=== PATIENT | female | born 1995 | race African-American/Black ===

== ENCOUNTER 2018-05-29 10:27 | Emergency (ER) | payer OTHER ==
[2018-05-29 13:05] VITALS: BP 105/61
--- NOTE | 2018-05-29 18:04 | ED ---
Throat Pain/Nasal Congestion - HPI Summary HPI Summary: Patient is a 22-year-old female presenting to the ED with bilateral conjunctival injection, bilateral lower lid swelling, maxillary sinus pressure, pain and swelling as well as feeling as she is swallowing a lot of mucus recently. She endorses cough, however denies any shortness of breath. Denies any chest pain. She states she has been dealing with this for over a month and has been placed on Augmentin with some good relief, however 3 days after discontinuing the medication, her symptoms returned. She has been afebrile and has not had any sweats or chills. Humidifier with good relief. She has also been taking Flonase and using a Brenda pot however without relief. Nothing makes the symptoms worse. She has not taken any ibuprofen or Tylenol. She has also used Mucinex without relief. She has been seen by [facility] twice. She is otherwise healthy and takes no medications. No known allergies, however she does have eczema which is intermittent. - History of Current Complaint Chief Complaint: EDThroatPain Time Seen by Provider: 05/29/18 10:49 Hx Obtained From: Patient Onset/Duration: Sudden Onset Severity: Moderate Associated Signs And Symptoms: Negative: Dysphagia, FB Sensation, Drooling, Wheezing, Hoarseness - Epiglottits Risk Factors Epiglottis Risk Factors: Negative - Allergies/Home Medications Allergies/Adverse Reactions: Allergies Allergy/AdvReac Type Severity Reaction Status Date / Time No Known Allergies Allergy Verified 05/29/18 10:38 PMH/Surg Hx/FS Hx/Imm Hx Previously Healthy: Yes - Immunization History Hx Pertussis Vaccination: No Immunizations Up to Date: Yes Infectious Disease History: No Infectious Disease History: Denies: Traveled Outside the [place] in Last 30 Days - Social History Occupation: Unemployed, Student Lives: With Family Alcohol Use: Occasionally Hx Substance Use: No Substance Use Type: Reports: None Smoking Status (MU): Never Smoked Tobacco Review of Systems Constitutional: Negative Negative: Fever, Chills, Fatigue, Skin Diaphoresis Positive: Dental Pain, Nasal Discharge, Other - bilateral maxillary sinus pressure and pain Negative: Palpitations, Chest Pain Negative: Shortness Of Breath, Cough Genitourinary: Negative Positive: no symptoms reported, see HPI Skin: Negative Neurological: Negative All Other Systems Reviewed And Are Negative: Yes Physical Exam Triage Information Reviewed: Yes Vital Signs On Initial Exam: Initial Vitals Temp Pulse Resp BP Pulse Ox 98 F 62 17 98/64 98 05/29/18 10:34 05/29/18 10:34 05/29/18 10:34 05/29/18 10:34 05/29/18 10:34 Vital Signs Reviewed: Yes Appearance: Positive: Well-Nourished, Ill-Appearing Skin: Positive: Warm, Skin Color Reflects Adequate Perfusion Head/Face: Positive: Normal Head/Face Inspection Eyes: Positive: Conjunctiva Inflammed, Discharge - Purulent ENT: Positive: Pharyngeal erythema, Nasal congestion, Nasal drainage, Dental tenderness, Sinus tenderness, Uvula midline. Negative: Tonsillar swelling, Tonsillar exudate, Muffled voice Neck: Positive: Supple, No Lymphadenopathy Respiratory/Lung Sounds: Positive: Clear to Auscultation, Breath Sounds Present Cardiovascular: Positive: RRR, Pulses are Symmetrical in both Upper and Lower Extremities Musculoskeletal: Positive: Normal, Strength/ROM Intact Neurological: Positive: Sensory/Motor Intact, Alert, Oriented to Person Place, Time, Speech Normal Psychiatric: Positive: Normal, Affect/Mood Appropriate AVPU Assessment: Alert Diagnostics - Vital Signs Vital Signs Temp Pulse Resp BP Pulse Ox 05/29/18 13:03 96.4 F 89 16 105/61 98 05/29/18 10:34 98 F 62 17 98/64 98 - Laboratory Lab Results: Lab Results 05/29/18 Range/Units 11:12 Group A Strep Rapid Negative (Negative) Lab Statement: Any lab studies that have been ordered have been reviewed, and results considered in the medical decision making process. EENT Course/Dx - Course Course Of Treatment: Patient is evaluated for bilateral sinus pressure and pain. On physical examination, there is maxillary sinus pressure and pain on light palpation, also with some swelling. No nasal discharge, however endorses mucus in the throat. She denies any fevers, sweats, chills. Symptoms have been present times one month and has been placed on Augmentin with her last dose approximately one week ago. She states this improved her symptoms somewhat , however all symptoms returned over the past week. She also has developed a new recent bilateral conjunctival injection with yellow crusting without pruritus. She is diagnosed with bilateral bacterial conjunctivitis and is given polymyxin trimethoprim drops for relief. She is also prescribed doxycycline twice daily 7 days for sinus infection. She will take Sudafed and obtain a humidifier for relief. She will follow-up with [facility]. - Differential Diagnoses Differential Diagnoses: Other - Sinusitis, tonsillitis, dental abscess, dental infection, viral syndrome, bacterial infection - Diagnoses Provider Diagnoses: Sinusitis Discharge - Sign-Out/Discharge Documenting (check all that apply): Patient Departure - Discharge Plan Condition: Stable Disposition: HOME Prescriptions: DOXYcycline CAP(*) [DOXYcycline 100MG CAP(*)] 100 mg PO BID #14 cap Polymyx/Trimethoprim OPTH* [Polytrim OPHTH*] 1 drop BOTH EYES Q3H #1 btl Patient Education Materials: Rhinosinusitis (ED), Warm Compress or Soak (ED) Referrals: No Primary Care Phys,NOPCP [Primary Care Provider] - Additional Instructions: Doxycycline twice daily 7 days Polymyxin eyedrops 5 times daily 5 days You are contagious X 48 hours so wash hands frequently Xyzal [id number] once daily Humidifier, warm humidifier as best Sudafed, [id number] - Billing Disposition and Condition Condition: STABLE Disposition: Home
== END 2018-05-29 13:03 | disposition home or self-care (01) ==
LOC: ED 10:27
DX: J32.9 Chronic sinusitis, unspecified (principal); K08.89 Other specified disorders of teeth and supporting structures
CPT/HCPCS: 87651; 99281